=== PATIENT | female | born 1975 | race Caucasian/White ===

== ENCOUNTER 2018-04-11 11:52 | Emergency (ER) | payer MEDICAID, MEDICARE ==
[~2018-04-11] VITALS: Ht 162.6 cm; Wt 63.5 kg
[2018-04-11] MEDS ORDERED: SODIUM CHLORIDE 0.9% 1,000 ML IV ONE (13:45)
[2018-04-11] MEDS ORDERED: KETOROLAC 30MG/ML VIAL IV STA (13:45)
[2018-04-11] MEDS ORDERED: DIATR MEGLU/DIATRIZOATE SOLN 30ML ONE (13:59)
[2018-04-11 14:42] LABS: BASOPHILS % 0.8 % (0.0-2.0); EOSINOPHILS % 2.2 % (0.0-5.0); HEMATOCRIT. 35.1 % (36.0-48.0); LYMPHOCYTES % 26.8 % (20.0-50.0); MEAN CORPUSCULAR HEMOGLOBIN 33.4 pg (28.0-32.0); MEAN CORPUSCULAR VOLUME 97.6 fL (81.0-99.0); MEAN PLATELET VOLUME 7.9 fl (7.4-10.4); MONOCYTES % 7.7 % (2.0-8.0); NEUTROPHILS % 62.5 % (40.0-76.0); PLATELET 245 x1000/uL (130-400); RED CELL DISTRIBUTION WIDTH 13.7 % (11.6-14.6)
[2018-04-11 14:50] LABS: CHLORIDE 106 mEq/L (98-107)
[2018-04-11 14:52] LABS: PROTHROMBIN TIME 9.8 sec (9.1-11.1)
[2018-04-11 14:55] LABS: CLARITY URINE CLOUDY (CLEAR); COLOR URINE YELLOW (YELLOW); KETONES URINE NEGATIVE (NEGATIVE); LEUKOCYTE ESTERASE URINE NEGATIVE (NEGATIVE); NITRITE URINE NEGATIVE (NEGATIVE); OCCULT BLOOD URINE NEGATIVE (NEGATIVE); PROTEIN URINE NEGATIVE (NEGATIVE); SPECIFIC GRAVITY URINE 1.027 (1.005-1.030); UROBILINOGEN URINE 0.2 E.U./dL (0.2-1.0)
[2018-04-11 15:13] LABS: HCG SCREEN NEGATIVE
[2018-04-11 15:21] LABS: *BARBITURATES SCREEN URINE NEGATIVE (NEGATIVE); CANNABINOID URINE SCREEN NEGATIVE (NEGATIVE); METHADONE URINE SCREEN NEGATIVE (NEGATIVE); OPIATES URINE SCREEN NEGATIVE (NEGATIVE); PHENCYCLIDINE URINE SCREEN NEGATIVE (NEGATIVE)
[2018-04-11 15:22] LABS: *AMPHETAMINES SCREEN URINE NEGATIVE (NEGATIVE); *BENZODIAZEPINES SCREEN URINE NEGATIVE (NEGATIVE); *COCAINE SCREEN URINE NEGATIVE (NEGATIVE)
[2018-04-11] MEDS ORDERED: IOHEXOL-300 100 ML BOTTLE ONE (16:36)
[2018-04-11] MEDS: ACETAMINOPHEN 325MG TABLET PO PRN (23:29)
[2018-04-12] MEDS: ACETAMINOPHEN 325MG TABLET PO PRN (06:44)
[2018-04-12 12:10] VITALS: BP 94/56
== END 2018-04-12 12:16 | disposition home or self-care (01) ==
LOC: ER 11:52
DX: R45.851 Suicidal ideations (principal); R10.32 Left lower quadrant pain; F41.9 Anxiety disorder, unspecified; K52.9 Noninfective gastroenteritis and colitis, unspecified; Z98.86 Personal history of breast implant removal
CPT/HCPCS: 36415; 74177; 80053; 80305; 81003; 83690; 84703; 85025; 85610; 96361; 96374; 99285; J1885; J7030; Q9967; Z7610; Q9963

== ENCOUNTER 2024-09-19 17:44 | Emergency (ER) | payer MEDICARE, MEDICAID ==
[~2024-09-19] VITALS: Ht 162.6 cm; Wt 70.0 kg
[2024-09-19 17:48] VITALS: O2SAT 100
[2024-09-19 18:28] LABS: CLARITY URINE CLOUDY (CLEAR); COLOR URINE DARK YELLOW (YELLOW); GLUCOSE URINE NEGATIVE (NEGATIVE); KETONES URINE 3+ (NEGATIVE); LEUKOCYTE ESTERASE URINE NEGATIVE (NEGATIVE); NITRITE URINE NEGATIVE (NEGATIVE); OCCULT BLOOD URINE NEGATIVE (NEGATIVE); PROTEIN URINE 1+ (NEGATIVE)
[2024-09-19 18:44] LABS: *AMPHETAMINES SCREEN URINE NEGATIVE (NEGATIVE); *BARBITURATES SCREEN URINE NEGATIVE (NEGATIVE); *BENZODIAZEPINES SCREEN URINE NEGATIVE (NEGATIVE); *COCAINE SCREEN URINE NEGATIVE (NEGATIVE)
[2024-09-19 18:45] LABS: CANNABINOID URINE SCREEN NEGATIVE (NEGATIVE); ECSTASY MDMA SCREEN URINE NEGATIVE (NEGATIVE); METHADONE URINE SCREEN NEGATIVE (NEGATIVE); OPIATES URINE SCREEN NEGATIVE (NEGATIVE); PHENCYCLIDINE URINE SCREEN NEGATIVE (NEGATIVE)
[2024-09-19 20:19] LABS: BACTERIA URINE TRACE; RBC URINE NONE SEEN /hpf (0-2); SQUAMOUS EPITHELIAL CELL URINE 1+ /lpf (RARE/1+); WBC URINE 0-2 /hpf (0-2)
[2024-09-19 21:28] LABS: BASOPHILS % 0.7 % (0.0-2.0); HEMATOCRIT. 36.3 % (36.0-48.0); LYMPHOCYTES % 22.6 % (20.0-50.0); MEAN CORPUSCULAR HEMOGLOBIN 34.9 pg (28.0-32.0); MEAN CORPUSCULAR VOLUME 97.1 fL (81.0-99.0); MEAN PLATELET VOLUME 8.4 fl (7.4-10.4); MONOCYTES % 9.9 % (2.0-8.0); NEUTROPHILS % 65.8 % (40.0-76.0); PLATELET 218 x1000/uL (130-400); RED BLOOD CELL COUNT 3.73 mill/uL (4.2-5.4); RED CELL DISTRIBUTION WIDTH 13.4 % (11.6-14.6); WHITE BLOOD COUNT 6.4 x1000/uL (4.5-11.0)
[2024-09-19 21:29] LABS: CHLORIDE 107 mEq/L (98-107); POTASSIUM 3.9 mEq/L (3.5-5.1); SODIUM 141 mEq/L (136-145)
[2024-09-19 21:30] LABS: CALCIUM 9.7 mg/dL (8.7-10.4); CARBON DIOXIDE 26 mEq/L (21-32)
[2024-09-19 21:35] LABS: GLUCOSE 81 mg/dL (70-105); UREA NITROGEN BLOOD 10 mg/dL (9-23)
[2024-09-19 21:36] LABS: ETHANOL BLOOD < 10 mg/dL (<10)
[2024-09-19 21:37] LABS: ACETAMINOPHEN < 2 ug/mL (10-30)
[2024-09-19 21:46] LABS: HCG SCREEN NEGATIVE
[2024-09-19] MEDS: QUETIAPINE FUMARATE 50MG TABLET PO NR (23:31)
[2024-09-19] MEDS: IBUPROFEN 400MG TABLET PO NR (23:31)
[2024-09-19] MEDS: SERTRALINE HCL 25MG TABLET PO NR (23:31)
[2024-09-19] MEDS: CLONAZEPAM 1MG TABLET PO ONE (23:32)
[2024-09-19] MEDS: SERTRALINE HCL 25MG TABLET PO ONE (23:33)
[2024-09-19] MEDS: QUETIAPINE FUMARATE 50MG TABLET PO ONE (23:33)
[2024-09-19] MEDS: IBUPROFEN 400MG TABLET PO ONE (23:33)
[2024-09-20] MEDS: CLONAZEPAM 1MG TABLET PO ONE (22:00)
[2024-09-20] MEDS: IBUPROFEN 600MG TABLET PO ONE (22:00)
[2024-09-20] MEDS: SERTRALINE HCL 25MG TABLET PO SCH (22:01)
[2024-09-20] MEDS: QUETIAPINE FUMARATE 50MG TABLET PO SCH (22:01)
[2024-09-21] MEDS: QUETIAPINE FUMARATE 50MG TABLET PO SCH (13:49)
[2024-09-21 13:55] VITALS: BP 91/52; PULSE 62; RESP 18; TEMP 36.72516; O2SAT 100
== END 2024-09-21 14:09 ==
LOC: ER 17:44
DX: F29 Unspecified psychosis not due to a substance or known physiological condition (principal); F41.9 Anxiety disorder, unspecified; Z98.890 Other specified postprocedural states; Z20.822 Contact with and (suspected) exposure to COVID-19; Z86.59 Personal history of other mental and behavioral disorders
CPT/HCPCS: 36415; 80048; 80305; 80307; 80320; 80329; 81003; 84703; 85025; 87070; 87426; 99285; G0480

== ENCOUNTER 2024-11-15 21:54 | Emergency (ER) | payer MEDICARE, MEDICAID ==
[~2024-11-15] VITALS: Ht 167.6 cm; Wt 59.0 kg
[2024-11-15 21:57] VITALS: O2SAT 98
[2024-11-15 23:47] LABS: CHLORIDE 105 mEq/L (98-107); POTASSIUM 4.1 mEq/L (3.5-5.1); SODIUM 136 mEq/L (136-145)
[2024-11-15 23:48] LABS: CARBON DIOXIDE 18 mEq/L (21-32)
[2024-11-15 23:53] LABS: CREATININE 0.9 mg/dL (0.6-1.0); GLUCOSE 98 mg/dL (70-105); UREA NITROGEN BLOOD 16 mg/dL (9-23)
[2024-11-15 23:55] LABS: ACETAMINOPHEN < 2 ug/mL (10-30)
[2024-11-16 00:16] LABS: BASOPHILS % 0.7 % (0.0-2.0); DIFFERENTIAL COMMENT 0; EOSINOPHILS % 1.1 % (0.0-5.0); HEMATOCRIT. 41.4 % (36.0-48.0); HEMOGLOBIN. 14.2 g/dL (12.0-16.0); LYMPHOCYTES % 33.8 % (20.0-50.0); MEAN CORPUSCULAR HEMOGLOBIN 34.4 pg (28.0-32.0); MEAN CORPUSCULAR HGB CONC 34.3 g/dL (31.0-37.0); MEAN CORPUSCULAR VOLUME 100.2 fL (81.0-99.0); MEAN PLATELET VOLUME 8.2 fl (7.4-10.4); MONOCYTES % 10.4 % (2.0-8.0); PLATELET 241 x1000/uL (130-400); RED BLOOD CELL COUNT 4.13 mill/uL (4.2-5.4); RED CELL DISTRIBUTION WIDTH 13.5 % (11.6-14.6); WHITE BLOOD COUNT 5.8 x1000/uL (4.5-11.0)
[2024-11-16 00:25] LABS: ETHANOL BLOOD < 10 mg/dL (<10)
[2024-11-16 05:28] LABS: HCG SCREEN NEGATIVE
[2024-11-16 05:31] LABS: CLARITY URINE CLOUDY (CLEAR); COLOR URINE DARK YELLOW (YELLOW); GLUCOSE URINE NEGATIVE (NEGATIVE); KETONES URINE 2+ (NEGATIVE); LEUKOCYTE ESTERASE URINE TRACE (NEGATIVE); NITRITE URINE NEGATIVE (NEGATIVE); OCCULT BLOOD URINE NEGATIVE (NEGATIVE); PROTEIN URINE 1+ (NEGATIVE); SPECIFIC GRAVITY URINE 1.031 (1.005-1.030)
[2024-11-16 06:17] LABS: *AMPHETAMINES SCREEN URINE NEGATIVE (NEGATIVE); *BARBITURATES SCREEN URINE NEGATIVE (NEGATIVE); *BENZODIAZEPINES SCREEN URINE NEGATIVE (NEGATIVE); *COCAINE SCREEN URINE NEGATIVE (NEGATIVE); METHADONE URINE SCREEN NEGATIVE (NEGATIVE); OPIATES URINE SCREEN NEGATIVE (NEGATIVE)
[2024-11-16 06:18] LABS: CANNABINOID URINE SCREEN NEGATIVE (NEGATIVE); ECSTASY MDMA SCREEN URINE NEGATIVE (NEGATIVE); PHENCYCLIDINE URINE SCREEN NEGATIVE (NEGATIVE)
[2024-11-16 07:25] LABS: BACTERIA URINE 3+; RBC URINE 0-2 /hpf (0-2); SQUAMOUS EPITHELIAL CELL URINE 2+ /lpf (RARE/1+); YEAST URINE NONE SEEN
[2024-11-16] MEDS: LORAZEPAM 1MG TABLET PO SCH (13:02)
[2024-11-16 16:11] VITALS: BP 115/72; PULSE 84; RESP 16; TEMP 36.7; O2SAT 97
[2024-11-16] MEDS ORDERED: QUETIAPINE FUMARATE 50MG TABLET PO SCH (21:00)
[2024-11-17] MEDS ORDERED: SERTRALINE HCL 25MG TABLET PO SCH (09:00)
== END 2024-11-16 16:29 ==
LOC: ER 21:54
DX: R44.1 Visual hallucinations (principal); R45.851 Suicidal ideations; F32.A Depression, unspecified; F41.9 Anxiety disorder, unspecified; Z79.899 Other long term (current) drug therapy; Z91.148 Patient's other noncompliance with medication regimen for other reason; Z20.822 Contact with and (suspected) exposure to COVID-19
CPT/HCPCS: 36415; 80048; 80305; 80307; 80320; 80329; 81003; 84703; 85025; 87426; 99285; G0480

== ENCOUNTER 2025-04-19 21:17 | Emergency (ER) | payer MEDICARE, MEDICAID ==
[~2025-04-19] VITALS: Ht 167.6 cm; Wt 64.0 kg
[2025-04-19 21:29] VITALS: O2SAT 99
[2025-04-19 22:46] LABS: BASOPHILS % 0.6 % (0.0-2.0); EOSINOPHILS % 0.1 % (0.0-5.0); HEMATOCRIT. 41.7 % (36.0-48.0); HEMOGLOBIN. 14.5 g/dL (12.0-16.0); LYMPHOCYTES % 19.6 % (20.0-50.0); MEAN PLATELET VOLUME 7.8 fl (7.4-10.4); MONOCYTES % 8.0 % (2.0-8.0); NEUTROPHILS % 71.7 % (40.0-76.0); PLATELET 240 x1000/uL (130-400); RED BLOOD CELL COUNT 4.17 mill/uL (4.2-5.4); RED CELL DISTRIBUTION WIDTH 12.9 % (11.6-14.6)
[2025-04-19 22:53] LABS: ETHANOL BLOOD < 10 mg/dL (<10); UREA NITROGEN BLOOD 21 mg/dL (9-23)
[2025-04-19 22:59] LABS: CREATININE 1.3 mg/dL (0.6-1.0)
[2025-04-19 23:05] LABS: CLARITY URINE CLEAR (CLEAR); COLOR URINE YELLOW (YELLOW); GLUCOSE URINE NEGATIVE (NEGATIVE); KETONES URINE 4+ (NEGATIVE); LEUKOCYTE ESTERASE URINE NEGATIVE (NEGATIVE); NITRITE URINE NEGATIVE (NEGATIVE); OCCULT BLOOD URINE TRACE (NEGATIVE); PH URINE 5.5 (4.5-8.0); PROTEIN URINE 3+ (NEGATIVE); SPECIFIC GRAVITY URINE 1.024 (1.005-1.030); UROBILINOGEN URINE 0.2 E.U./dL (0.2-1.0)
[2025-04-19 23:06] LABS: WBC URINE 0-2 /hpf (0-2)
[2025-04-19 23:07] LABS: BACTERIA URINE TRACE; SQUAMOUS EPITHELIAL CELL URINE FEW /lpf (RARE/1+)
[2025-04-19 23:08] LABS: HCG SCREEN NEGATIVE
[2025-04-19] MEDS: DIPHENHYDRAMINE 25MG CAPSULE PO ONE (23:10)
[2025-04-19] MEDS: QUETIAPINE FUMARATE 50MG TABLET PO SCH (23:10)
[2025-04-19 23:23] LABS: *AMPHETAMINES SCREEN URINE NEGATIVE (NEGATIVE); *BARBITURATES SCREEN URINE NEGATIVE (NEGATIVE); *BENZODIAZEPINES SCREEN URINE NEGATIVE (NEGATIVE); *COCAINE SCREEN URINE NEGATIVE (NEGATIVE); CANNABINOID URINE SCREEN NEGATIVE (NEGATIVE); ECSTASY MDMA SCREEN URINE NEGATIVE (NEGATIVE); METHADONE URINE SCREEN NEGATIVE (NEGATIVE); OPIATES URINE SCREEN NEGATIVE (NEGATIVE); PHENCYCLIDINE URINE SCREEN NEGATIVE (NEGATIVE)
[2025-04-20 14:55] VITALS: BP 110/65; PULSE 68; RESP 15; TEMP 36.6; O2SAT 98
== END 2025-04-20 14:48 ==
LOC: ER 21:17
DX: R45.851 Suicidal ideations (principal); F25.9 Schizoaffective disorder, unspecified; Z20.822 Contact with and (suspected) exposure to COVID-19
CPT/HCPCS: 80305; 80048; 81003; 80307; 80329; 80320; 84703; 85025; 36415; 99285; 87426; Q0163; A4606; G0480